=== PATIENT | male | born 1965 | race Caucasian/White ===

== ENCOUNTER 2021-08-28 14:19 | Outpatient (CLI) | payer BC | END 2021-08-28 14:20 | disposition home or self-care (01) | LOC: ULT 14:19 | PROVIDERS: ATTEND Family Medicine | DX: R93.89 Abnormal findings on diagnostic imaging of other specified body structures (principal) | CPT/HCPCS: 76770 ==

== ENCOUNTER 2021-10-17 09:15 | Outpatient (CLI) | payer BC | END 2021-10-17 09:16 | disposition home or self-care (01) | LOC: LABBT 09:15 | PROVIDERS: ATTEND Internal Medicine Cardiovascular Disease | DX: Z01.818 Encounter for other preprocedural examination (principal); Z20.822 Contact with and (suspected) exposure to COVID-19 | CPT/HCPCS: 93005; 93010; U0003; U0005 ==

== ENCOUNTER 2021-10-22 07:24 | Day surgery (SDC) | payer BC ==
[2021-10-20 10:02] VITALS: BMI 29.4
[2021-10-22] MEDS ORDERED: Thrombin 5000 UNITS/5 ML VIAL ONE (08:44)
[2021-10-22] MEDS ORDERED: Bupivacaine PF 0.5% 30 ML VIAL ONE (08:44)
[2021-10-22] MEDS ORDERED: EPINEPHrine 1 MG/ML AMP ONE (08:44)
[2021-10-22] MEDS ORDERED: CEFAZOLIN 2 GM VIAL ONE ×2 (09:47→15:40)
[2021-10-22] MEDS ORDERED: Sodium Chloride 0.9% 100 ML ONE ×2 (09:47→15:41)
[2021-10-22] MEDS ORDERED: fentaNYL Citrate/PF 100 MCG/2 ML SYRINGE ONE (10:05)
[2021-10-22] MEDS ORDERED: Fentanyl 100 MCG/2 ML VIAL ONE (13:00)
== END 2021-10-22 16:32 | disposition home or self-care (01) ==
LOC: SDC 07:24
PROVIDERS: ATTEND Neurological Surgery
PROC: 0SG0071 Fusion of Lumbar Vertebral Joint with Autologous Tissue Substitute, Posterior Approach, Posterior Column, Open Approach (ICD-10-PCS; principal; 2021-10-22)
DX: M43.16 Spondylolisthesis, lumbar region (principal); M48.062 Spinal stenosis, lumbar region with neurogenic claudication; M48.07 Spinal stenosis, lumbosacral region; M51.16 Intervertebral disc disorders with radiculopathy, lumbar region; I10 Essential (primary) hypertension; Z79.899 Other long term (current) drug therapy
CPT/HCPCS: 76000; C1713; C1768; J0171; J0690; J3010; J3490; S0020

== ENCOUNTER 2021-10-26 07:03 | Emergency (ER) | payer BC ==
[2021-10-26 08:53] LABS: #Basophils 0.1 thou/uL (0.0-0.2); #Eosinphils 0.4 thou/uL (0.0-0.7); #Lymphocytes 1.4 thou/uL (1.20-3.40); #Monocytes 0.7 thou/uL (0.11-0.59); #Neutrophils 5.4 thou/uL (1.40-6.50); %Basophils 1.1 % (0.0-1.0); %Eosinophils 5.3 % (0.0-10.0); %Lymphocytes 17.7 % (21.0-51.0); %Monocytes 8.5 % (0.0-10.0); %Neutrophils 67.5 % (42.0-75.0); Mean Corpuscular HGB CONC 33.1 g/dL (32.0-36.0); Mean Corpuscular Hemoglobin 30.9 pg (27.0-31.0); Mean Corpuscular Volume 93.2 fL (78.0-98.0); Mean Platelet Volume 7.6 fL (7.4-10.4); Platelet Count 267 thou/uL (130-400); RBC Distribution Width 12.2 % (11.5-14.5); Red Blood Cell (RBC) Count 4.21 mill/uL (4.70-6.10)
[2021-10-26] MEDS ORDERED: Morphine 4 MG/ML VIAL ONE (08:55)
[2021-10-26] MEDS ORDERED: Ondansetron PF 4 MG/2 ML Vial ONE (08:55)
[2021-10-26 09:15] LABS: ALT (SGPT) 26 U/L (8-55); AST (SGOT) 24 U/L (5-34); Alkaline Phosphatase 58 U/L (40-110); Anion Gap 13 mmol/L (10-20); BUN (Urea Nitrogen) 14 mg/dL (8.4-25.7); Bilirubin, Total 1.8 mg/dL (0.2-1.2); Calc. Creatinine Clearance 0 mL/min (70-130); Calcium 9.6 mg/dL (7.8-10.44); Carbon Dioxide 30 mmol/L (22-29); Chloride 99 mmol/L (98-107); Globulin 3.3 g/dL (2.4-3.5); Glucose 90 mg/dL (70-105); Potassium 4.5 mmol/L (3.5-5.1); Protein, Total 7.3 g/dL (6.0-8.3); Sodium 137 mmol/L (136-145)
== END 2021-10-26 10:20 | disposition home or self-care (01) ==
LOC: ERS 07:03
DX: G89.18 Other acute postprocedural pain (principal); M96.89 Other intraoperative and postprocedural complications and disorders of the musculoskeletal system; G47.33 Obstructive sleep apnea (adult) (pediatric); I10 Essential (primary) hypertension
CPT/HCPCS: 80053; 85025; 96374; 96375; J2270; J2405

== ENCOUNTER 2022-03-10 18:00 | Outpatient (CLI) | payer BC | END 2022-03-10 18:01 | disposition home or self-care (01) | LOC: SLEEPLAB 18:00 | PROVIDERS: ATTEND Family Medicine | DX: G47.33 Obstructive sleep apnea (adult) (pediatric) (principal); R53.83 Other fatigue; R40.0 Somnolence; F41.9 Anxiety disorder, unspecified; F32.9 Major depressive disorder, single episode, unspecified; G47.10 Hypersomnia, unspecified; G47.00 Insomnia, unspecified; I10 Essential (primary) hypertension; G47.31 Primary central sleep apnea; R06.83 Snoring | CPT/HCPCS: 95800 ==

== ENCOUNTER 2022-04-21 19:00 | Outpatient (CLI) | payer BC | END 2022-04-21 19:01 | disposition home or self-care (01) | LOC: SLEEPLAB 19:00 | PROVIDERS: ATTEND Family Medicine | DX: G47.33 Obstructive sleep apnea (adult) (pediatric) (principal); G47.10 Hypersomnia, unspecified; G47.9 Sleep disorder, unspecified; R53.83 Other fatigue; F32.9 Major depressive disorder, single episode, unspecified; F41.9 Anxiety disorder, unspecified; R06.83 Snoring; G47.00 Insomnia, unspecified; I10 Essential (primary) hypertension; E66.9 Obesity, unspecified; Z68.31 Body mass index [BMI] 31.0-31.9, adult | CPT/HCPCS: 95811 ==

== ENCOUNTER 2022-06-08 12:08 | Outpatient (CLI) | payer BC ==
[2022-06-08 13:07] LABS: #Basophils 0.1 10x3/uL (0.0-0.2); #Eosinphils 0.3 10x3/uL (0.0-0.5); #Monocytes 0.6 10x3/uL (0.0-1.1); #Neutrophils 2.9 10x3/uL (1.5-8.4); %Basophils 1.5 % (0.0-2.0); %Eosinophils 4.4 % (0.0-6.0); %Lymphocytes 33.8 % (18.0-47.0); Hemoglobin 14.5 g/dL (13.5-17.5); Mean Corpuscular HGB CONC 35.3 g/dL (32.0-36.0); Mean Corpuscular Hemoglobin 31.2 pg (27.0-33.0); Mean Corpuscular Volume 88.4 fl (81.2-95.1); Mean Platelet Volume 10.6 fl (7.4-10.4); Platelet Count 270 10x3/uL (150-450); RBC Distribution Width 12.6 % (11.5-14.5); Red Blood Cell (RBC) Count 4.65 10x6/uL (4.32-5.72); White Blood Cell (WBC) Count 5.9 10x3/uL (3.5-10.5)
[2022-06-08 13:17] LABS: ALT (SGPT) 30 U/L (8-55); AST (SGOT) 20 U/L (5-34); Albumin 4.4 g/dL (3.5-5.0); Alkaline Phosphatase 81 U/L (40-110); Anion Gap 13 mmol/L (10-20); BUN (Urea Nitrogen) 13 mg/dL (8.4-25.7); Calc. Creatinine Clearance 0 mL/min (70-130); Calcium 9.5 mg/dL (7.8-10.44); Carbon Dioxide 27 mmol/L (22-29); Chloride 105 mmol/L (98-107); Estimated GFR 91; Globulin 2.6 g/dL (2.4-3.5); Glucose 100 mg/dL (70-105); Potassium 4.2 mmol/L (3.5-5.1); Sodium 141 mmol/L (136-145)
== END 2022-06-08 12:09 | disposition home or self-care (01) ==
LOC: LABBT 12:08
PROVIDERS: ATTEND Surgery
DX: Z01.812 Encounter for preprocedural laboratory examination (principal); K40.90 Unilateral inguinal hernia, without obstruction or gangrene, not specified as recurrent
CPT/HCPCS: 80053; 85025; 93005; 93010

== ENCOUNTER 2022-06-09 10:28 | Day surgery (SDC) | payer BC ==
[2022-06-05 14:03] VITALS: BMI 32.3
[2022-06-09] MEDS ORDERED: fentaNYL PF 100 MCG/2 ML SYRINGE ONE (15:23)
[2022-06-09] MEDS ORDERED: Bupivacaine/Epinephrine 0.25% 30 ML VIAL ONE (15:30)
[2022-06-09] MEDS ORDERED: Sodium Chloride 0.9% 100 ML ONE (15:47)
[2022-06-09] MEDS ORDERED: CEFAZOLIN 2 GM VIAL ONE (15:47)
[2022-06-09] MEDS ORDERED: PROPOFOL 200 MG/20 ML VIAL ONE (15:52)
[2022-06-09] MEDS ORDERED: Glycopyrrolate 0.2 MG/ML 5 ML SYRINGE ONE (15:52)
[2022-06-09] MEDS ORDERED: Lidocaine 1% PF 5 ML VIAL ONE (15:52)
[2022-06-09] MEDS ORDERED: Dexamethasone 20 MG/5 ML VIAL ONE (15:52)
[2022-06-09] MEDS ORDERED: Ondansetron PF 4 MG/2 ML Vial ONE (15:52)
[2022-06-09] MEDS ORDERED: Rocuronium Bromide 10 MG/ML (10ML VIAL) ONE (15:52)
[2022-06-09] MEDS ORDERED: Ketorolac Tromethamine 30 MG/ML VIAL ONE (18:36)
[2022-06-09] MEDS ORDERED: Fentanyl 100 MCG/2 ML VIAL ONE (18:44)
[2022-06-09] MEDS ORDERED: HYDROcodone/Acetaminophen 5/325 mg Tablet ONE (19:22)
== END 2022-06-09 19:55 | disposition home or self-care (01) ==
LOC: SDC 10:28
PROVIDERS: ATTEND Surgery
PROC: 8E0W4CZ Robotic Assisted Procedure of Trunk Region, Percutaneous Endoscopic Approach (ICD-10-PCS; principal; 2022-06-09)
PROC: 0YU64JZ Supplement Left Inguinal Region with Synthetic Substitute, Percutaneous Endoscopic Approach (ICD-10-PCS; principal; 2022-06-09)
DX: K40.90 Unilateral inguinal hernia, without obstruction or gangrene, not specified as recurrent (principal); D17.6 Benign lipomatous neoplasm of spermatic cord; M19.90 Unspecified osteoarthritis, unspecified site; I10 Essential (primary) hypertension; N40.0 Benign prostatic hyperplasia without lower urinary tract symptoms; G89.29 Other chronic pain; Z79.899 Other long term (current) drug therapy
CPT/HCPCS: C1781; J1885; J3010; J3490

== ENCOUNTER 2022-06-23 11:45 | Inpatient (IN) | payer OTHER, BC ==
[~2022-06-23 11:45] MED LIST: Iopamidol-370 76% 500 ML 1 ML ONE
[2022-06-23] MEDS ORDERED: Naloxone HCl 0.4 mg/ml Vial ONE (11:54)
[2022-06-23] MEDS ORDERED: Ondansetron PF 4 MG/2 ML Vial ONE (11:54)
[2022-06-23 13:37] LABS: #Basophils 0.1 thou/uL (0.0-0.2); #Eosinphils 0.5 thou/uL (0.0-0.7); #Lymphocytes 2.4 thou/uL (1.20-3.40); #Monocytes 0.6 thou/uL (0.11-0.59); #Neutrophils 6.6 thou/uL (1.40-6.50); %Eosinophils 4.9 % (0.0-10.0); %Lymphocytes 23.7 % (21.0-51.0); %Neutrophils 64.5 % (42.0-75.0); Hemoglobin 14.8 g/dL (14.0-18.0); Mean Corpuscular Hemoglobin 32.3 pg (27.0-31.0); Mean Corpuscular Volume 92.2 fl (78.0-98.0); Mean Platelet Volume 8.3 fL (7.4-10.4); Platelet Count 248 10x3/uL (130-400); RBC Distribution Width 11.5 % (11.5-14.5); Red Blood Cell (RBC) Count 4.58 mill/uL (4.70-6.10); White Blood Cell (WBC) Count 10.3 10x3/uL (4.8-10.8)
[2022-06-23 13:43] LABS: ALT (SGPT) 18 U/L (8-55); AST (SGOT) 16 U/L (5-34); Albumin 4.2 g/dL (3.5-5.0); Alkaline Phosphatase 79 U/L (40-110); Anion Gap 10 mmol/L (10-20); BUN (Urea Nitrogen) 19 mg/dL (8.4-25.7); Calc. Creatinine Clearance 0 mL/min (70-130); Calcium 8.8 mg/dL (7.8-10.44); Carbon Dioxide 27 mmol/L (22-29); Chloride 101 mmol/L (98-107); Estimated GFR 77; Globulin 2.5 g/dL (2.4-3.5); Glucose 126 mg/dL (70-105); Potassium 4.2 mmol/L (3.5-5.1); Protein, Total 6.7 g/dL (6.0-8.3); Sodium 134 mmol/L (136-145)
[2022-06-23 13:45] LABS: Prothrombin Time 13.3 sec (12.0-14.7)
[2022-06-23] MEDS ORDERED: Naloxone HCl 2 mg/2 ml Syringe ONE (14:19)
[2022-06-23] MEDS ORDERED: Naloxone HCl 2 MG, Admixture Fee 1 EACH in Sodium Chloride 0.9% 500 ML IV SCH (15:15)
[2022-06-23 15:51] LABS: SARS-CoV-2 NAA Rapid Test Not Detected (NotDetected)
[2022-06-23 16:19] VITALS: BMI 32.8
[2022-06-23 17:03] LABS: Bilirubin Negative (Negative); Blood, Urine Negative (Negative); Clarity Clear (Clear); Glucose, Urine (Dipstick) Normal (Negative); Ketone, Urine Negative (Negative); Leukocyte Negative Leu/uL (Negative); Nitrite Negative (Negative); Protein, Urine (Dipstick) Negative (Neg-Trace); Specific Gravity, Urine 1.033 (1.002-1.036); Urobilinogen Normal mg/dL (Less than 2); pH, Urine 5.5 (5.0-9.0)
[2022-06-23 17:11] LABS: Amphetamine Not Detected (NotDetected); Barbiturates Screen Not Detected (NotDetected); Benzodiazepine Screen Not Detected (NotDetected); Cocaine Metabolite Screen Not Detected (NotDetected); Methadone Not Detected (NotDetected); Methamphetamine Not Detected (NotDetected); Opiate Screen Detected (NotDetected); Oxycodone Screen Not Detected (NotDetected); Phencyclidine (PCP) Not Detected (NotDetected); THC/Cannabinoid Screen Not Detected (NotDetected); Tricyclic Screen Detected (NotDetected)
[2022-06-23 17:51] VITALS: BP 171/103
[2022-06-23] MEDS ORDERED: Ondansetron ODT 4 MG TAB PO PRN (17:57)
[2022-06-23] MEDS ORDERED: hydrALAZINE 20 MG/ML VIAL SLOW IVP PRN (17:59)
[2022-06-23] MEDS ORDERED: FLU VACC QS2022-23(6MOS UP)/PF 60 MCG/0.5 ML SYRINGE IM ONE (18:00)
[2022-06-23] MEDS: Naloxone HCl 2 MG, Admixture Fee 1 EACH in Sodium Chloride 0.9% 500 ML IV SCH ×2 (20:44→22:49)
[2022-06-23] MEDS ORDERED: Tamsulosin HCl 0.4 MG CAP PO SCH (21:00)
[2022-06-23] MEDS: Propranolol 40 MG TAB PO SCH (21:27)
[2022-06-24 04:19] LABS: #Basophils 0.1 thou/uL (0.0-0.2); #Eosinphils 0.4 thou/uL (0.0-0.7); #Monocytes 0.5 thou/uL (0.11-0.59); #Neutrophils 4.7 thou/uL (1.40-6.50); %Eosinophils 4.8 % (0.0-10.0); %Lymphocytes 26.1 % (21.0-51.0); %Monocytes 6.3 % (0.0-10.0); %Neutrophils 61.8 % (42.0-75.0); Hemoglobin 13.2 g/dL (14.0-18.0); Mean Corpuscular HGB CONC 34.8 g/dL (32.0-36.0); Mean Corpuscular Hemoglobin 31.9 pg (27.0-31.0); Mean Corpuscular Volume 91.8 fl (78.0-98.0); Mean Platelet Volume 7.9 fL (7.4-10.4); Platelet Count 227 10x3/uL (130-400); RBC Distribution Width 11.3 % (11.5-14.5); Red Blood Cell (RBC) Count 4.14 mill/uL (4.70-6.10); White Blood Cell (WBC) Count 7.5 10x3/uL (4.8-10.8)
[2022-06-24 04:38] LABS: ALT (SGPT) 16 U/L (8-55); AST (SGOT) 16 U/L (5-34); Albumin 3.6 g/dL (3.5-5.0); Alkaline Phosphatase 71 U/L (40-110); Anion Gap 11 mmol/L (10-20); BUN (Urea Nitrogen) 13 mg/dL (8.4-25.7); Calc. Creatinine Clearance 144 mL/min (70-130); Calcium 8.3 mg/dL (7.8-10.44); Carbon Dioxide 26 mmol/L (22-29); Chloride 106 mmol/L (98-107); Estimated GFR 102; Globulin 2.5 g/dL (2.4-3.5); Glucose 86 mg/dL (70-105); Potassium 3.6 mmol/L (3.5-5.1); Protein, Total 6.1 g/dL (6.0-8.3); Sodium 139 mmol/L (136-145)
[2022-06-24 07:00] VITALS: TEMP 98
[2022-06-24] MEDS ORDERED: clonazePAM 1 MG TAB PO PRN (08:15)
[2022-06-24] MEDS: Propranolol 40 MG TAB PO SCH ×3 (08:30→17:09)
[2022-06-24] MEDS ORDERED: DULoxetine 30 MG CAP PO SCH (09:00)
[2022-06-24] MEDS ORDERED: ALPRAZolam 0.25 MG TAB PO PRN (17:20)
== END 2022-06-24 17:25 | disposition short-term general hospital (02) | DRG 917 ==
LOC: ERS 11:45 → ERHOLD 15:46 → CCU 17:27
PROVIDERS: ADMIT Family Medicine; ATTEND Internal Medicine
DX: T40.602A Poisoning by unspecified narcotics, intentional self-harm, initial encounter (principal); G92.9 Unspecified toxic encephalopathy; T40.2X2A Poisoning by other opioids, intentional self-harm, initial encounter; T48.1X2A Poisoning by skeletal muscle relaxants [neuromuscular blocking agents], intentional self-harm, initial encounter; T43.012A Poisoning by tricyclic antidepressants, intentional self-harm, initial encounter; I10 Essential (primary) hypertension; G89.29 Other chronic pain; F41.9 Anxiety disorder, unspecified; F32.A Depression, unspecified; Z20.822 Contact with and (suspected) exposure to COVID-19; G47.33 Obstructive sleep apnea (adult) (pediatric); Y92.89 Other specified places as the place of occurrence of the external cause; Z98.890 Other specified postprocedural states; Z79.899 Other long term (current) drug therapy
CPT/HCPCS: 36415; 36416; 70450; 70496; 70498; 70551; 71045; 80053; 80306; 81003; 84484; 85025; 85610; 85730; 93005; 94760; 96365; 96376; J1650; J2310; J2405; J7030; Q9967; U0002

== ENCOUNTER 2022-07-08 16:48 | Emergency (ER) | payer BC, SELFPAY ==
[2022-07-08] MEDS ORDERED: Lorazepam 1 MG TAB ONE (18:00)
[2022-07-08 18:25] LABS: #Basophils 0.1 thou/uL (0.0-0.2); #Eosinphils 0.4 thou/uL (0.0-0.7); #Lymphocytes 1.9 thou/uL (1.20-3.40); #Monocytes 0.8 thou/uL (0.11-0.59); #Neutrophils 3.8 thou/uL (1.40-6.50); %Basophils 1.3 % (0.0-1.0); %Eosinophils 6.4 % (0.0-10.0); %Lymphocytes 27.8 % (21.0-51.0); %Monocytes 11.1 % (0.0-10.0); %Neutrophils 53.6 % (42.0-75.0); Mean Corpuscular HGB CONC 34.3 g/dL (32.0-36.0); Mean Corpuscular Hemoglobin 31.3 pg (27.0-31.0); Mean Corpuscular Volume 91.1 fl (78.0-98.0); Mean Platelet Volume 7.8 fL (7.4-10.4); Platelet Count 296 10x3/uL (130-400); RBC Distribution Width 11.3 % (11.5-14.5); Red Blood Cell (RBC) Count 4.79 mill/uL (4.70-6.10)
[2022-07-08 18:48] LABS: ALT (SGPT) 23 U/L (8-55); AST (SGOT) 17 U/L (5-34); Albumin 4.3 g/dL (3.5-5.0); Alkaline Phosphatase 92 U/L (40-110); Anion Gap 12 mmol/L (10-20); BUN (Urea Nitrogen) 17 mg/dL (8.4-25.7); Bilirubin, Total 1.1 mg/dL (0.2-1.2); Calc. Creatinine Clearance 0 mL/min (70-130); Calcium 9.3 mg/dL (7.8-10.44); Carbon Dioxide 25 mmol/L (22-29); Chloride 105 mmol/L (98-107); Estimated GFR 100; Globulin 2.9 g/dL (2.4-3.5); Glucose 112 mg/dL (70-105); Lipase 33 U/L (8-78); Magnesium 2.5 mg/dL (1.6-2.6); Potassium 4.1 mmol/L (3.5-5.1); Protein, Total 7.2 g/dL (6.0-8.3); Sodium 138 mmol/L (136-145)
== END 2022-07-08 20:02 | disposition home or self-care (01) ==
LOC: ERS 16:48
DX: F41.9 Anxiety disorder, unspecified (principal); I10 Essential (primary) hypertension
CPT/HCPCS: 36415; 71045; 80053; 83690; 83735; 84484; 85025; 93005